=== PATIENT | female | born 1975 | race Caucasian/White ===

== ENCOUNTER 2019-12-24 17:03 | Emergency (ER) | payer OTHER ==
[~2019-12-24] VITALS: Wt 104.3 kg
[2019-12-24 17:35] LABS: BASO # 0.1 10*3/uL (0.0-0.1); BASO % 0.7 % (0.0-1.0); EOS # 0.3 10*3/uL (0.0-0.4); EOS % 3.1 % (1.0-4.0); HEMATOCRIT 40.3 % (37.0-47.0); HEMOGLOBIN 13.1 g/dl (12.0-16.0); LYMPH # 2.4 10*3/uL (1.3-4.4); MEAN CELL VOLUME 90.2 fl (81.0-99.0); MEAN CORPUSCULAR HGB 29.3 pg (27.0-31.0); MEAN CORPUSCULAR HGB CONC 32.5 g/dl (33.0-37.0); MEAN PLATELET VOLUME 10.5 fl (9.6-12.3); MONO # 0.7 10*3/uL (0.1-1.0); MONO % 8.3 % (3.0-9.0); NEUT # 5.3 10*3/uL (2.3-7.9); NEUT % 60.7 % (47.0-73.0); PLATELET COUNT AUTOMATED 340 10*3/uL (130-400); RED BLOOD COUNT 4.47 10*6/uL (4.10-5.10); RED CELL DISTRI WIDTH 13.8 % (0-14.5); WHITE BLOOD COUNT 8.7 10*3/uL (4.8-10.8)
[2019-12-24 17:45] LABS: ACT PARTIAL THROMBO TIME 26.5 SECONDS (20.0-32.1); INTERNATIONAL NORM RATIO 0.9 (2.0-3.5)
[2019-12-24 17:51] LABS: ALBUMIN 3.8 gm/dl (3.1-4.5); ALKALINE PHOSPHATASE 97 U/L (45-117); BUN 14 mg/dl (7-24); CHLORIDE 112 mmol/L (98-107); CREATININE 0.87 mg/dL (0.55-1.02); POTASSIUM 4.1 mmol/L (3.5-5.1); SGOT/AST 17 IU/L (3-35); SGPT/ALT 25 U/L (12-78); SODIUM 139 mmol/L (136-145)
[2019-12-24 17:52] LABS: TROPONIN I < 0.015 ng/ml (<0.045)
[2019-12-24 19:36] LABS: CLARITY CLEAR (CLEAR); COLOR YELLOW (YELLOW)
[2019-12-24 19:39] LABS: BILIRUBIN NEGATIVE (NEGATIVE); BLOOD NEGATIVE (NEGATIVE); GLUCOSE NEGATIVE (NEGATIVE); KETONE NEGATIVE (NEGATIVE); LEUKO ESTERASE NEGATIVE (NEGATIVE); NITRITE NEGATIVE (NEGATIVE); SPECIFIC GRAVITY 1.025 (1.005-1.030); UROBILINOGEN 0.2 E.U./dl (0.2-1.0)
[2019-12-24 19:44] LABS: EPITHELIAL CELLS 15-20; RBC 0-2 rbc/hpf (0-2); WBC 0-2 wbc/hpf (0-5)
[2019-12-24 19:45] LABS: BACTERIA TRACE
== END 2019-12-24 19:56 | disposition home or self-care (01) ==
LOC: ED 17:03
PROVIDERS: Emergency Medicine; Nurse Practitioner
DX: J44.9 Chronic obstructive pulmonary disease, unspecified (principal); R07.89 Other chest pain; F41.9 Anxiety disorder, unspecified; F31.9 Bipolar disorder, unspecified; Z88.8 Allergy status to other drugs, medicaments and biological substances; Z88.1 Allergy status to other antibiotic agents

== ENCOUNTER → 2020-01-25 | Outpatient (CLI) | payer OTHER ==
[~2020-01-25] MED LIST: FISH OIL 1,0001 EAC4 PO; GEMFIBROZIL600 MG PO; HYDROXYZINE PO; LATU40TA PO; LEVOXYL75 MCG PO; NAPROXEN500 MG PO; PROAIR HFA8.5 GM INH; SINGULAIR10 M1 PO; TOPIRAMATE100 M2 PO; VRAYLAR3 MG PO
--- NOTE | 2020-01-25 07:00 | NUR ---
INFORMED CONSENT OBTAINED FOR STANDARD GXT WITH DR. CHRIS. RESTING EKG NSR WITH A SUPINE HR OF 67 WITH BP OF 106/60 AND HR OF 92 WITH BP OF 104/60 IN STANDING POSITION. PT COMPLETED 4:00 OF A 2:00 EULOGIO PROTOCOL WITH COMPLETION OF 2:00 OF STAGE II AT 2.5 MPH AND 12% GRADE. REACHED A PEAK HR OF 160 WHICH IS 91% OF PREDICTED MAX WITH A A PEAK BP OF 144/80. TEST TERMINATED BECAUSE OF FATIGUE AND SOB. HAD NO CHEST PAIN OR ANY EKG CHANGES. HAD C/O NUMBNESS WITH HOLDING THE BAR WITH EXERCISE. HAS A FAIR EXERCISE TOLERANCE. LAST RECOVERY HR OF 84 WITH BP OF 110/54. NEGATIVE STANDARD GXT. IV DISCONTINUED AND DISCHARGED IN STABLE CONDITION.
== END | disposition home or self-care (01) ==
LOC: CARD 00:10
DX: R07.89 Other chest pain (principal); R06.02 Shortness of breath

== ENCOUNTER → 2020-05-26 | Outpatient (CLI) | payer OTHER | END | disposition home or self-care (01) | LOC: RAD 09:36 | DX: M25.569 Pain in unspecified knee (principal) ==

== ENCOUNTER → 2020-12-22 | Outpatient (CLI) | payer OTHER ==
[~2020-12-22] MED LIST changes: +MACROBID100 M1 PO; +PYRIDIUM200 M1 PO
== END | disposition home or self-care (01) ==
LOC: LAB 16:33
PROVIDERS: ATTEND Internal Medicine Critical Care Medicine
DX: R53.83 Other fatigue (principal)

== ENCOUNTER 2021-02-26 13:29 | Emergency (ER) | payer OTHER ==
[~2021-02-26] VITALS: Ht 167.6 cm; Wt 124.7 kg
[2021-02-26] MEDS ORDERED: NAPROSYN500 MG PO (19:17)
== END 2021-02-26 19:43 | disposition home or self-care (01) ==
LOC: ED 13:29
DX: S83.91XA Sprain of unspecified site of right knee, initial encounter (principal); S90.31XA Contusion of right foot, initial encounter; Z88.8 Allergy status to other drugs, medicaments and biological substances; Z79.899 Other long term (current) drug therapy; Z90.711 Acquired absence of uterus with remaining cervical stump; Z98.890 Other specified postprocedural states; W19.XXXA Unspecified fall, initial encounter; Y93.89 Activity, other specified; Y92.89 Other specified places as the place of occurrence of the external cause; Y99.8 Other external cause status

== ENCOUNTER 2021-07-05 15:41 | Emergency (ER) | payer OTHER ==
[~2021-07-05] VITALS: Ht 170.1 cm; Wt 124.7 kg
[~2021-07-05 15:41] MED LIST changes: +NAPROSYN500 MG PO
== END 2021-07-05 19:19 | disposition left against medical advice (07) ==
LOC: ED 15:41
DX: S09.90XA Unspecified injury of head, initial encounter (principal); Z53.21 Procedure and treatment not carried out due to patient leaving prior to being seen by health care provider; X58.XXXA Exposure to other specified factors, initial encounter; Y92.89 Other specified places as the place of occurrence of the external cause; Y99.8 Other external cause status

== ENCOUNTER 2022-06-02 22:29 | Emergency (ER) | payer OTHER, MEDICAID ==
[~2022-06-02] VITALS: Ht 167.6 cm; Wt 127.0 kg
== END 2022-06-03 01:19 | disposition home or self-care (01) ==
LOC: ED 22:29
DX: B34.9 Viral infection, unspecified (principal); Z20.822 Contact with and (suspected) exposure to COVID-19; Z88.1 Allergy status to other antibiotic agents; Z88.8 Allergy status to other drugs, medicaments and biological substances; Z79.899 Other long term (current) drug therapy; Z90.710 Acquired absence of both cervix and uterus; Z98.890 Other specified postprocedural states; Z90.89 Acquired absence of other organs

== ENCOUNTER 2022-06-10 10:58 | Emergency (ER) | payer MEDICAID ==
[~2022-06-10] VITALS: Ht 170.1 cm; Wt 127.0 kg
[2022-06-10 14:05] LABS: BASO # 0.1 10*3/uL (0.0-0.1); BASO % 0.8 % (0.0-1.0); EOS # 0.2 10*3/uL (0.0-0.4); EOS % 3.5 % (1.0-4.0); HEMATOCRIT 38.1 % (37.0-47.0); LYMPH # 1.6 10*3/uL (1.3-4.4); LYMPH % 23.9 % (27.0-41.0); MEAN CELL VOLUME 90.3 fl (81.0-99.0); MEAN CORPUSCULAR HGB 29.9 pg (27.0-31.0); MEAN CORPUSCULAR HGB CONC 33.1 g/dl (33.0-37.0); MONO # 0.7 10*3/uL (0.1-1.0); MONO % 10.1 % (3.0-9.0); NEUT % 60.5 % (47.0-73.0); PLATELET COUNT AUTOMATED 299 10*3/uL (130-400); RED BLOOD COUNT 4.22 10*6/uL (4.10-5.10); RED CELL DISTRI WIDTH 13.4 % (0-14.5); WHITE BLOOD COUNT 6.6 10*3/uL (4.8-10.8)
[2022-06-10 14:12] LABS: BILIRUBIN Negative (Negative); BLOOD Negative (Negative); CLARITY Clear (Clear); COLOR Yellow (Yellow); GLUCOSE Negative (Negative); KETONE Negative (Negative); LEUKO ESTERASE 1+ (Negative); NITRITE Negative (Negative); PH 6.5 (4.5-8.0)
[2022-06-10 14:20] LABS: ALKALINE PHOSPHATASE 73 U/L (45-117); BUN 12 mg/dl (7-24); CHLORIDE 112 mmol/L (98-107); CREATININE 0.73 mg/dL (0.55-1.02); POTASSIUM 4.6 mmol/L (3.5-5.1); SGOT/AST 14 IU/L (3-35); SGPT/ALT 21 U/L (12-78); SODIUM 141 mmol/L (136-145); TOTAL PROTEIN 6.7 gm/dL (6.4-8.2)
[2022-06-10 14:32] LABS: BACTERIA 4+; EPITHELIAL CELLS 21-30
[2022-06-10] MEDS ORDERED: ZANAFLEX4 MG PO ×2 (15:09→15:21)
[2022-06-10] MEDS ORDERED: MEDROL DOSEPAK4 MG PO ×2 (15:09→15:21)
== END 2022-06-10 18:33 | disposition home or self-care (01) ==
LOC: ED 10:58
PROVIDERS: Nurse Practitioner Family
DX: G43.909 Migraine, unspecified, not intractable, without status migrainosus (principal); M54.50 Low back pain, unspecified; Z88.8 Allergy status to other drugs, medicaments and biological substances; Z88.1 Allergy status to other antibiotic agents; Z79.899 Other long term (current) drug therapy; Z98.890 Other specified postprocedural states; Z90.89 Acquired absence of other organs; Z90.710 Acquired absence of both cervix and uterus

== ENCOUNTER 2022-10-30 09:30 | Emergency (ER) | payer MEDICAID ==
[~2022-10-30] VITALS: Ht 167.6 cm; Wt 126.1 kg
[~2022-10-30 09:30] MED LIST changes: +MEDROL DOSEPAK4 MG PO; +ZANAFLEX4 MG PO
[2022-10-30 10:43] LABS: BASO # 0.1 10*3/uL (0.0-0.1); EOS # 0.3 10*3/uL (0.0-0.4); EOS % 3.7 % (1.0-4.0); HEMATOCRIT 39.4 % (37.0-47.0); LYMPH # 1.4 10*3/uL (1.3-4.4); LYMPH % 20.6 % (27.0-41.0); MEAN CELL VOLUME 90.8 fl (81.0-99.0); MEAN CORPUSCULAR HGB 29.5 pg (27.0-31.0); MEAN CORPUSCULAR HGB CONC 32.5 g/dl (33.0-37.0); MEAN PLATELET VOLUME 10.1 fl (9.6-12.3); MONO # 0.5 10*3/uL (0.1-1.0); MONO % 7.9 % (3.0-9.0); NEUT # 4.5 10*3/uL (2.3-7.9); NEUT % 66.5 % (47.0-73.0); PLATELET COUNT AUTOMATED 298 10*3/uL (130-400); RED BLOOD COUNT 4.34 10*6/uL (4.10-5.10); RED CELL DISTRI WIDTH 13.2 % (0-14.5); WHITE BLOOD COUNT 6.7 10*3/uL (4.8-10.8)
[2022-10-30 10:59] LABS: ALKALINE PHOSPHATASE 75 U/L (46-116); BUN 25 mg/dl (9-23); CHLORIDE 107 mmol/L (98-107); POTASSIUM 4.3 mmol/L (3.4-5.1); TOTAL PROTEIN 6.7 gm/dL (6.0-8.0)
[2022-10-30 11:00] LABS: SGPT/ALT < 7 U/L (10-49)
[2022-10-30] MEDS ORDERED: Ondansetron4 MG PO (11:50)
== END 2022-10-30 11:42 | disposition home or self-care (01) ==
LOC: ED 09:30
PROVIDERS: Student in an Organized Health Care Education/Training Program
DX: J06.9 Acute upper respiratory infection, unspecified (principal); Z20.822 Contact with and (suspected) exposure to COVID-19; R11.2 Nausea with vomiting, unspecified; Z88.8 Allergy status to other drugs, medicaments and biological substances; Z88.1 Allergy status to other antibiotic agents; Z79.899 Other long term (current) drug therapy; Z98.890 Other specified postprocedural states; Z90.710 Acquired absence of both cervix and uterus; Z90.89 Acquired absence of other organs

== ENCOUNTER 2022-11-16 15:12 | Emergency (ER) | payer MEDICAID ==
[~2022-11-16] VITALS: Wt 122.0 kg
[~2022-11-16 15:12] MED LIST changes: +Ondansetron4 MG PO
== END 2022-11-16 16:44 | disposition home or self-care (01) ==
LOC: ED 15:12
DX: S80.02XA Contusion of left knee, initial encounter (principal); Z88.8 Allergy status to other drugs, medicaments and biological substances; Z88.5 Allergy status to narcotic agent; Z90.710 Acquired absence of both cervix and uterus; Z90.89 Acquired absence of other organs; Z98.890 Other specified postprocedural states; X50.1XXA Overexertion from prolonged static or awkward postures, initial encounter; Y93.89 Activity, other specified; Y92.89 Other specified places as the place of occurrence of the external cause; Y99.0 Civilian activity done for income or pay

== ENCOUNTER 2023-03-03 10:39 | Emergency (ER) | payer OTHER ==
[~2023-03-03] VITALS: Ht 167.6 cm; Wt 127.0 kg
[2023-03-03] MEDS ORDERED: ROPINIROLE HYDRO1 MG PO (11:00)
[2023-03-03] MEDS ORDERED: FLOMAX0.4 MG PO (11:01)
[2023-03-03] MEDS ORDERED: ABILIFY MAINTE400 MG IM (11:02)
[2023-03-03] MEDS ORDERED: SUMATRIPTAN SU100 M1 PO (11:03)
[2023-03-03] MEDS ORDERED: BUDESONIDE-FO10.2 GM INH (11:04)
[2023-03-03] MEDS ORDERED: PRAZOSIN HYDROCH1 MG PO (11:06)
[2023-03-03] MEDS ORDERED: EC NAPROSYN,NA500 MG PO (11:07)
[2023-03-03] MEDS ORDERED: TIZANIDINE HCL4 MG PO (11:09)
[2023-03-03] MEDS ORDERED: CYCLOBENZAPRINE10 MG PO (13:25)
[2023-03-03] MEDS ORDERED: PREDNISONE50 MG PO (13:25)
== END 2023-03-03 13:34 | disposition home or self-care (01) ==
LOC: ED 10:39
DX: M54.50 Low back pain, unspecified (principal); J44.9 Chronic obstructive pulmonary disease, unspecified; F41.9 Anxiety disorder, unspecified; F31.9 Bipolar disorder, unspecified; M79.7 Fibromyalgia; Z88.8 Allergy status to other drugs, medicaments and biological substances; Z88.5 Allergy status to narcotic agent; Z88.1 Allergy status to other antibiotic agents; Z90.710 Acquired absence of both cervix and uterus; Z90.89 Acquired absence of other organs; Z98.890 Other specified postprocedural states

== ENCOUNTER 2023-06-06 07:25 | Emergency (ER) | payer OTHER ==
[~2023-06-06] VITALS: Ht 165.1 cm; Wt 132.4 kg
[~2023-06-06 07:25] MED LIST changes: +ABILIFY MAINTE400 MG IM; +BUDESONIDE-FO10.2 GM INH; +CYCLOBENZAPRINE10 MG PO; +EC NAPROSYN,NA500 MG PO; +FLOMAX0.4 MG PO; +PRAZOSIN HYDROCH1 MG PO; +PREDNISONE50 MG PO; +ROPINIROLE HYDRO1 MG PO; +SUMATRIPTAN SU100 M1 PO; +TIZANIDINE HCL4 MG PO
[2023-06-06] MEDS ORDERED: FAMOTIDINE40 MG PO (07:46)
[2023-06-06] MEDS ORDERED: ARIPIPRAZOLE10 MG PO (07:48)
[2023-06-06] MEDS ORDERED: LAMOTRIGINE100 MG PO (07:49)
[2023-06-06] MEDS ORDERED: ROPINIROLE HYD0.5 MG PO (07:50)
[2023-06-06] MEDS ORDERED: PROPRANOLOL HCL10 MG PO (07:51)
[2023-06-06 08:18] LABS: BASO # 0.1 10*3/uL (0.0-0.1); BASO % 0.8 % (0.0-1.0); EOS # 0.3 10*3/uL (0.0-0.4); EOS % 4.2 % (1.0-4.0); HEMATOCRIT 38.8 % (37.0-47.0); LYMPH # 1.9 10*3/uL (1.3-4.4); LYMPH % 26.3 % (27.0-41.0); MEAN CELL VOLUME 88.6 fl (81.0-99.0); MEAN CORPUSCULAR HGB 29.5 pg (27.0-31.0); MEAN CORPUSCULAR HGB CONC 33.2 g/dl (33.0-37.0); MONO # 0.9 10*3/uL (0.1-1.0); MONO % 11.5 % (3.0-9.0); NEUT # 4.2 10*3/uL (2.3-7.9); NEUT % 56.7 % (47.0-73.0); PLATELET COUNT AUTOMATED 350 10*3/uL (130-400); RED BLOOD COUNT 4.38 10*6/uL (4.10-5.10); WHITE BLOOD COUNT 7.4 10*3/uL (4.8-10.8)
[2023-06-06 08:29] LABS: ACT PARTIAL THROMBO TIME 29.3 SECONDS (20.0-32.1)
[2023-06-06 08:58] LABS: ALKALINE PHOSPHATASE 90 U/L (46-116); BUN 20 mg/dl (9-23); CHLORIDE 109 mmol/L (98-107); LIPASE 33 U/L (12-53); SGPT/ALT 21 U/L (10-49)
== END 2023-06-06 10:00 | disposition home or self-care (01) ==
LOC: ED 07:25
PROVIDERS: Emergency Medicine
DX: S20.211A Contusion of right front wall of thorax, initial encounter (principal); R10.31 Right lower quadrant pain; J44.9 Chronic obstructive pulmonary disease, unspecified; F41.9 Anxiety disorder, unspecified; F31.9 Bipolar disorder, unspecified; M79.7 Fibromyalgia; Z88.5 Allergy status to narcotic agent; Z88.8 Allergy status to other drugs, medicaments and biological substances; Z90.710 Acquired absence of both cervix and uterus; Z90.89 Acquired absence of other organs; Z98.890 Other specified postprocedural states; W01.0XXA Fall on same level from slipping, tripping and stumbling without subsequent striking against object, initial encounter; Y93.89 Activity, other specified; Y92.89 Other specified places as the place of occurrence of the external cause; Y99.8 Other external cause status

== ENCOUNTER 2023-07-05 07:47 | Emergency (ER) | payer OTHER ==
[~2023-07-05] VITALS: Ht 167.6 cm; Wt 128.8 kg
[~2023-07-05 07:47] MED LIST changes: +ARIPIPRAZOLE10 MG PO; +FAMOTIDINE40 MG PO; +LAMOTRIGINE100 MG PO; +PROPRANOLOL HCL10 MG PO; +ROPINIROLE HYD0.5 MG PO
== END 2023-07-05 09:54 | disposition home or self-care (01) ==
LOC: ED 07:47
DX: M17.12 Unilateral primary osteoarthritis, left knee (principal); Z91.048 Other nonmedicinal substance allergy status; Z88.6 Allergy status to analgesic agent; Z88.8 Allergy status to other drugs, medicaments and biological substances; Z79.899 Other long term (current) drug therapy; Z98.890 Other specified postprocedural states; Z90.711 Acquired absence of uterus with remaining cervical stump

== ENCOUNTER 2023-07-26 12:11 | Emergency (ER) | payer OTHER ==
[~2023-07-26] VITALS: Wt 128.8 kg
== END 2023-07-26 13:23 | disposition home or self-care (01) ==
LOC: ED 12:11
DX: M25.532 Pain in left wrist (principal); F41.9 Anxiety disorder, unspecified; F31.9 Bipolar disorder, unspecified; M79.7 Fibromyalgia; J44.9 Chronic obstructive pulmonary disease, unspecified; G43.909 Migraine, unspecified, not intractable, without status migrainosus; Z88.8 Allergy status to other drugs, medicaments and biological substances; Z88.5 Allergy status to narcotic agent; Z90.710 Acquired absence of both cervix and uterus; Z90.89 Acquired absence of other organs; Z98.890 Other specified postprocedural states

== ENCOUNTER → 2023-09-03 | Outpatient (CLI) | payer OTHER ==
[2023-09-03 14:21] LABS: BASO # 0.1 10*3/uL (0.0-0.1); BASO % 0.9 % (0.0-1.0); BILIRUBIN Negative (Negative); BLOOD Negative (Negative); CLARITY Cloudy (Clear); COLOR Yellow (Yellow); EOS # 0.3 10*3/uL (0.0-0.4); EOS % 3.9 % (1.0-4.0); GLUCOSE Negative (Negative); HEMATOCRIT 37.2 % (37.0-47.0); KETONE Negative (Negative); LEUKO ESTERASE Trace (Negative); LYMPH # 1.5 10*3/uL (1.3-4.4); LYMPH % 21.6 % (27.0-41.0); MEAN CELL VOLUME 89.9 fl (81.0-99.0); MEAN CORPUSCULAR HGB 29.5 pg (27.0-31.0); MEAN CORPUSCULAR HGB CONC 32.8 g/dl (33.0-37.0); MEAN PLATELET VOLUME 10.1 fl (9.6-12.3); MONO # 0.6 10*3/uL (0.1-1.0); MONO % 9.2 % (3.0-9.0); NEUT # 4.5 10*3/uL (2.3-7.9); NITRITE Negative (Negative); PLATELET COUNT AUTOMATED 289 10*3/uL (130-400); RED BLOOD COUNT 4.14 10*6/uL (4.10-5.10); RED CELL DISTRI WIDTH 13.7 % (0-14.5); SPECIFIC GRAVITY 1.025 (1.001-1.030); UROBILINOGEN 0.2 E.U./dl (0.0-1.0)
[2023-09-03 14:44] LABS: TOTAL PROTEIN 6.8 gm/dL (6.0-8.0)
[2023-09-03 14:55] LABS: BACTERIA 1+
== END | disposition home or self-care (01) ==
LOC: LAB 13:32 → US 14:00
PROVIDERS: ATTEND Urology
DX: N39.0 Urinary tract infection, site not specified (principal)

== ENCOUNTER 2023-11-02 08:41 | Emergency (ER) | payer OTHER ==
[~2023-11-02] VITALS: Ht 167.6 cm; Wt 124.3 kg
[2023-11-02] MEDS ORDERED: FAMOTIDINE40 MG PO (09:06)
[2023-11-02] MEDS ORDERED: LAMOTRIGINE200 MG PO (09:07)
[2023-11-02] MEDS ORDERED: BENZTROPINE ME0.5 MG PO (09:08)
[2023-11-02] MEDS ORDERED: TRAMADOL HCL50 MG PO (11:21)
== END 2023-11-02 11:32 | disposition home or self-care (01) ==
LOC: ED 08:41
DX: M25.532 Pain in left wrist (principal); R22.9 Localized swelling, mass and lump, unspecified; J44.9 Chronic obstructive pulmonary disease, unspecified; F41.9 Anxiety disorder, unspecified; F31.9 Bipolar disorder, unspecified; M79.7 Fibromyalgia; Z88.8 Allergy status to other drugs, medicaments and biological substances; Z88.1 Allergy status to other antibiotic agents; Z98.890 Other specified postprocedural states; Z90.710 Acquired absence of both cervix and uterus; Z90.89 Acquired absence of other organs

== ENCOUNTER → 2023-12-29 | Outpatient (CLI) | payer OTHER ==
[~2023-12-29] MED LIST changes: +BENZTROPINE ME0.5 MG PO; +LAMOTRIGINE200 MG PO; +TRAMADOL HCL50 MG PO
== END | disposition home or self-care (01) ==
LOC: MRI 12-23 11:00
PROVIDERS: ATTEND Orthopaedic Surgery
DX: M65.88 Other synovitis and tenosynovitis, other site (principal); M25.532 Pain in left wrist

== ENCOUNTER → 2024-04-23 | Outpatient (CLI) | payer OTHER | END | disposition home or self-care (01) | LOC: ORTHO 01:30 | PROVIDERS: ATTEND Orthopaedic Surgery | DX: M16.11 Unilateral primary osteoarthritis, right hip (principal); M25.552 Pain in left hip ==

== ENCOUNTER 2024-08-20 08:54 | Emergency (ER) | payer OTHER ==
[~2024-08-20] VITALS: Ht 167.6 cm; Wt 127.0 kg
[2024-08-20] MEDS ORDERED: Acetaminophen/Oxycodone 5 MG/325 MG TABLET PO ONE (09:10)
[2024-08-20] MEDS ORDERED: TRAMADOL HCL50 MG PO (09:42)
== END 2024-08-20 09:58 | disposition home or self-care (01) ==
LOC: ED 08:54
DX: M25.562 Pain in left knee (principal); M25.572 Pain in left ankle and joints of left foot; J44.9 Chronic obstructive pulmonary disease, unspecified; M19.90 Unspecified osteoarthritis, unspecified site; F41.9 Anxiety disorder, unspecified; F31.9 Bipolar disorder, unspecified; M79.7 Fibromyalgia; Z88.1 Allergy status to other antibiotic agents; Z88.8 Allergy status to other drugs, medicaments and biological substances; Z90.710 Acquired absence of both cervix and uterus; Z90.89 Acquired absence of other organs; Z98.890 Other specified postprocedural states

== ENCOUNTER 2024-09-14 13:13 | Emergency (ER) | payer OTHER ==
[~2024-09-14] VITALS: Ht 167.6 cm; Wt 129.3 kg
[2024-09-14] MEDS ORDERED: SENNA8.6 MG PO (13:23)
[2024-09-14] MEDS ORDERED: BUSPAR15 MG PO (13:24)
[2024-09-14] MEDS ORDERED: NEURONTIN300 MG PO (13:24)
[2024-09-14] MEDS ORDERED: BREYNA 80-4.510.3 GM INH (13:24)
[2024-09-14] MEDS ORDERED: ATARAX,VISTARIL50 MG PO (13:25)
[2024-09-14] MEDS ORDERED: Ondansetron Hydrochloride 4 MG/2 ML VIAL IV ONE (14:00)
[2024-09-14] MEDS ORDERED: SODIUM CHLORIDE 0.9% 500 ML IV ONE (14:00)
[2024-09-14] MEDS ORDERED: Pantoprazole Sodium 40 MG VIAL IV ONE (14:00)
[2024-09-14 14:11] LABS: BASO # 0.1 10*3/uL (0.0-0.1); EOS # 0.3 10*3/uL (0.0-0.4); HEMATOCRIT 38.7 % (37.0-47.0); MEAN CELL VOLUME 90.8 fl (81.0-99.0); MEAN CORPUSCULAR HGB 29.6 pg (27.0-31.0); MEAN CORPUSCULAR HGB CONC 32.6 g/dl (33.0-37.0); MEAN PLATELET VOLUME 9.8 fl (9.6-12.3); MONO # 0.6 10*3/uL (0.1-1.0); MONO % 9.2 % (3.0-9.0); NEUT # 3.5 10*3/uL (2.3-7.9); NEUT % 58.2 % (47.0-73.0); PLATELET COUNT AUTOMATED 289 10*3/uL (130-400); RED BLOOD COUNT 4.26 10*6/uL (4.10-5.10); RED CELL DISTRI WIDTH 12.7 % (0-14.5)
[2024-09-14] MEDS ORDERED: IOHEXOL 300 MG/ML 100 ML VIAL IV ONE (14:15)
[2024-09-14] MEDS ORDERED: Water, Sterile 10 ML VIAL ONE (14:26)
[2024-09-14 14:32] LABS: TOTAL PROTEIN 7.1 gm/dL (6.0-8.0)
[2024-09-14] MEDS ORDERED: ANUSOL-HC25 MG R (15:35)
== END 2024-09-14 15:38 | disposition home or self-care (01) ==
LOC: ED 13:13
PROVIDERS: Nurse Practitioner Family
DX: K64.9 Unspecified hemorrhoids (principal); J44.9 Chronic obstructive pulmonary disease, unspecified; G43.909 Migraine, unspecified, not intractable, without status migrainosus; F41.9 Anxiety disorder, unspecified; F31.9 Bipolar disorder, unspecified; M79.7 Fibromyalgia; Z88.1 Allergy status to other antibiotic agents; Z88.8 Allergy status to other drugs, medicaments and biological substances; Z90.49 Acquired absence of other specified parts of digestive tract; Z90.89 Acquired absence of other organs; Z90.710 Acquired absence of both cervix and uterus; Z98.890 Other specified postprocedural states

== ENCOUNTER 2024-10-07 14:42 | Emergency (ER) | payer OTHER ==
[~2024-10-07] VITALS: Ht 167.6 cm; Wt 131.1 kg
[~2024-10-07 14:42] MED LIST changes: +ANUSOL-HC25 MG R; +ATARAX,VISTARIL50 MG PO; +BREYNA 80-4.510.3 GM INH; +BUSPAR15 MG PO; +NEURONTIN300 MG PO; +SENNA8.6 MG PO
[2024-10-07] MEDS ORDERED: Ketorolac Tromethamine 30 MG/ML VIAL IM ONE (15:00)
== END 2024-10-07 16:11 | disposition home or self-care (01) ==
LOC: ED 14:42
DX: S93.402A Sprain of unspecified ligament of left ankle, initial encounter (principal); F31.9 Bipolar disorder, unspecified; M79.7 Fibromyalgia; E03.9 Hypothyroidism, unspecified; E78.5 Hyperlipidemia, unspecified; J44.9 Chronic obstructive pulmonary disease, unspecified; F41.9 Anxiety disorder, unspecified; Z88.8 Allergy status to other drugs, medicaments and biological substances; Z88.1 Allergy status to other antibiotic agents; Z90.89 Acquired absence of other organs; Z90.710 Acquired absence of both cervix and uterus; Z98.890 Other specified postprocedural states; W01.0XXA Fall on same level from slipping, tripping and stumbling without subsequent striking against object, initial encounter; Y93.89 Activity, other specified; Y92.89 Other specified places as the place of occurrence of the external cause; Y99.8 Other external cause status

== ENCOUNTER 2024-10-21 11:33 | Emergency (ER) | payer OTHER ==
[~2024-10-21] VITALS: Ht 172.7 cm; Wt 135.2 kg
[2024-10-21] MEDS ORDERED: Metoclopramide Hydrochloride 10 MG/2 ML VIAL IV ONE (11:55)
[2024-10-21] MEDS ORDERED: Ketorolac Tromethamine 30 MG/ML VIAL IV ONE (11:55)
[2024-10-21] MEDS ORDERED: diphenhydrAMINE hydrochloride 50 MG/ML VIAL IV ONE (11:55)
[2024-10-21] MEDS ORDERED: SODIUM CHLORIDE 0.9% 500 ML IV ONE (11:55)
[2024-10-21] MEDS ORDERED: Ondansetron Hydrochloride 4 MG/2 ML VIAL IV ONE (12:55)
[2024-10-21] MEDS ORDERED: Dexamethasone Sodium Phospha 10 MG/1 ML VIAL IV ONE (13:20)
== END 2024-10-21 13:43 | disposition home or self-care (01) ==
LOC: ED 11:33
DX: G43.909 Migraine, unspecified, not intractable, without status migrainosus (principal); J44.9 Chronic obstructive pulmonary disease, unspecified; F31.9 Bipolar disorder, unspecified; F41.9 Anxiety disorder, unspecified; M79.7 Fibromyalgia; Z88.8 Allergy status to other drugs, medicaments and biological substances; Z88.1 Allergy status to other antibiotic agents; Z88.5 Allergy status to narcotic agent; Z90.710 Acquired absence of both cervix and uterus; Z90.89 Acquired absence of other organs; Z98.890 Other specified postprocedural states

== ENCOUNTER → 2024-11-09 | Outpatient (CLI) | payer OTHER ==
[~2024-11-09] MED LIST changes: +CEFDINIR300 MG PO
== END | disposition home or self-care (01) ==
LOC: RAD 09:03
PROVIDERS: ATTEND Surgery
DX: R05.3 Chronic cough (principal); R07.9 Chest pain, unspecified; J45.909 Unspecified asthma, uncomplicated

== ENCOUNTER → 2024-11-15 | Day surgery (SDC) | payer OTHER ==
[~2024-11-15] VITALS: Ht 167.6 cm; Wt 127.0 kg
[~2024-11-15] MED LIST changes: +ACETAMINOPHEN 100 ML IV ONE; +ALBUTEROL 8 GM INHALER INH ONE; +BUPIVACAINE 0.5% 30 ML IV ONE; +COLACE100 MG PO; +Dexamethasone Sodium Phospha 4 MG/ML VIAL IV ONE; +HYDROmorphONE Hydrochloride 0.5 MG/0.5 ML SYRINGE IV PRN; +HYDROmorphONE Hydrochloride 0.5 MG/0.5 ML SYRINGE ONE; +Ketamine Hydrochloride 500 MG/10 ML VIAL IV ONE; +Lactated Ringer's Solution 1,000 ML IV ONE; +Lidocaine Hydrochloride 5 ML VIAL IV ONE; +Midazolam Hydrochloride 2 MG/2 ML VIAL IV ONE; +Ondansetron Hydrochloride 4 MG/2 ML VIAL IV ONE; +PERCOCET 5-3251 EACH PO; +PROPOFOL 200 MG/20 ML VIAL IV ONE; +ROCURONIUM BROMIDE 50 MG/5 ML SYRINGE IV ONE; +SEVOFLURANE 250 ML BOT INH ONE; +SUGAMMADEX SODIUM 200 MG/2 ML VIAL IV ONE; +Succinylcholine Chloride 200 MG/10 ML VIAL IV ONE; +ceFAZolin sodium/sodium chlor 1 GM/10 ML SYR IV ONE; +ceFAZolin sodium/sodium chlor 30 ML IV ONE; +fentaNYL CITRATE 100 MCG/2 ML VIAL IV ONE
[2024-11-15 08:20] VITALS: BP 110/64
[2024-11-15 11:13] VITALS: BP 125/77
[2024-11-15 11:28] VITALS: BP 127/82
[2024-11-15 11:43] VITALS: BP 121/67
[2024-11-15 11:58] VITALS: BP 115/67
[2024-11-15 12:11] VITALS: BP 122/69
== END | disposition home or self-care (01) ==
LOC: SDC 11-11 08:45
PROVIDERS: ATTEND Surgery
DX: K80.10 Calculus of gallbladder with chronic cholecystitis without obstruction (principal); I10 Essential (primary) hypertension; J44.9 Chronic obstructive pulmonary disease, unspecified; K21.9 Gastro-esophageal reflux disease without esophagitis; E78.5 Hyperlipidemia, unspecified; F41.9 Anxiety disorder, unspecified; F31.9 Bipolar disorder, unspecified; Z90.711 Acquired absence of uterus with remaining cervical stump; Z98.891 History of uterine scar from previous surgery; Z90.89 Acquired absence of other organs; Z98.890 Other specified postprocedural states; Z79.890 Hormone replacement therapy; Z79.84 Long term (current) use of oral hypoglycemic drugs; Z79.899 Other long term (current) drug therapy; Z88.1 Allergy status to other antibiotic agents; Z88.5 Allergy status to narcotic agent; Z88.8 Allergy status to other drugs, medicaments and biological substances

== ENCOUNTER → 2024-12-13 | Outpatient (CLI) | payer OTHER ==
[~2024-12-13] MED LIST changes: -ACETAMINOPHEN 100 ML IV ONE; -ALBUTEROL 8 GM INHALER INH ONE; -BUPIVACAINE 0.5% 30 ML IV ONE; -Dexamethasone Sodium Phospha 4 MG/ML VIAL IV ONE; -HYDROmorphONE Hydrochloride 0.5 MG/0.5 ML SYRINGE IV PRN; -HYDROmorphONE Hydrochloride 0.5 MG/0.5 ML SYRINGE ONE; -Ketamine Hydrochloride 500 MG/10 ML VIAL IV ONE; -Lactated Ringer's Solution 1,000 ML IV ONE; -Lidocaine Hydrochloride 5 ML VIAL IV ONE; -Midazolam Hydrochloride 2 MG/2 ML VIAL IV ONE; -Ondansetron Hydrochloride 4 MG/2 ML VIAL IV ONE; -PROPOFOL 200 MG/20 ML VIAL IV ONE; -ROCURONIUM BROMIDE 50 MG/5 ML SYRINGE IV ONE; -SEVOFLURANE 250 ML BOT INH ONE; -SUGAMMADEX SODIUM 200 MG/2 ML VIAL IV ONE; -Succinylcholine Chloride 200 MG/10 ML VIAL IV ONE; -ceFAZolin sodium/sodium chlor 1 GM/10 ML SYR IV ONE; -ceFAZolin sodium/sodium chlor 30 ML IV ONE; -fentaNYL CITRATE 100 MCG/2 ML VIAL IV ONE
== END | disposition home or self-care (01) ==
LOC: LAB 11:53
PROVIDERS: ATTEND Internal Medicine Critical Care Medicine
DX: R53.83 Other fatigue (principal)